=== PATIENT | male | born 1985 | race African-American/Black ===

== ENCOUNTER 2016-09-18 18:09 | Emergency (ER) | payer MEDICAID ==
[~2016-09-18] VITALS: Ht 162.6 cm; Wt 81.6 kg
[2016-09-18 18:13] VITALS: BP 124/63
[2016-09-18] MEDS ORDERED: CEFTRIAXONE 500 MG VIAL IM ONE (18:30)
[2016-09-18] MEDS ORDERED: AZITHROMYCIN 250 MG TABLET PO ONE (18:30)
[2016-09-18] MEDS ORDERED: LIDOCAINE /MPF 1% VIAL 5 ML VIAL ONE (18:34)
[2016-09-18] MEDS ORDERED: AZITHROMYCIN 250 MG TABLET ONE (18:34)
[2016-09-18] MEDS ORDERED: CEFTRIAXONE 500 MG VIAL ONE (18:34)
[2016-09-18 18:37] LABS: APPEARANCE,URINE SL CLOUDY (CLEAR); BILIRUBIN,URINE NEGATIVE (NEGATIVE); BLOOD, URINE NEGATIVE Ery/uL (NEGATIVE); COLOR,URINE YELLOW (YELLOW); KETONES,URINE NEGATIVE (NEGATIVE); LEUKOCYTE ESTERASE ,URINE 3+ (NEGATIVE); NITRITE, URINE NEGATIVE (NEGATIVE); PROTEIN,URINE NEGATIVE (NEGATIVE); UGLUCOSE NEGATIVE (NEGATIVE); UROBILINOGEN,URINE 0.2 EU/dL (0.2)
[2016-09-18 18:45] LABS: BACTERIA,URINE Few /HPF (None Seen); RBC,URINE NONE SEEN /HPF (0-2); SQUAMOUS EPITHELIAL CELL,UR None Seen /HPF (None Seen); WBC,URINE 51-80 /HPF (0-3)
== END 2016-09-18 19:20 | disposition home or self-care (01) ==
LOC: ER 18:13
DX: A64 Unspecified sexually transmitted disease (principal)
CPT/HCPCS: 81001; 87086; 96372; 99284; A4606; J0696; J3490; Z7610; 81000-TC